=== PATIENT | male | born 1980 | race Hispanic/Latino ===

== ENCOUNTER 2018-12-21 07:43 | Inpatient (IN) | payer OTHER ==
[~2018-12-21] VITALS: Ht 182.9 cm; Wt 201.1 kg
[2018-12-21] MEDS ORDERED: PANTOPRAZOLE 40 MG 10ML VIAL IV STA (07:57)
[2018-12-21] MEDS ORDERED: ONDANSETRON HCL INJ 2MG/ML 2ML 2 MG/ML VIAL IV STA (07:57)
[2018-12-21] MEDS ORDERED: SODIUM CHLORIDE 0.9% 1000ML 1,000 ML IV STA (07:57)
[2018-12-21] MEDS ORDERED: MORPHINE SULFATE 5 MG/ML VIAL IV ONE (08:00)
[2018-12-21] MEDS ORDERED: MORPHINE SULFATE INJ 4 MG/ML INJ 1ML IV NR (08:15)
[2018-12-21] MEDS ORDERED: NIFEDIAC CC60 MG PO (08:36)
[2018-12-21] MEDS ORDERED: DICYCLOMINE HCL20 MG PO (08:36)
[2018-12-21] MEDS ORDERED: FLUTICASONE PRO16 GM INH (08:36)
[2018-12-21 08:49] LABS: BASOPHILS % 0.1 % (0.0-1.0); HEMATOCRIT 35.7 % (38.2-49.6); HEMOGLOBIN 11.9 g/dL (14.0-18.0); LYMPHOCYTES # (AUTO) 0.7 (1.0-3.2); LYMPHOCYTES % 4.9 % (18.0-39.1); MEAN CORPUSCULAR HEMOGLOBIN 25.9 pg (28-32); MEAN CORPUSCULAR HGB CONC 33.3 g/dL (31-35); MEAN CORPUSCULAR VOLUME 77.6 fL (81-99); MONOCYTES # (AUTO) 0.6 (0.2-0.8); MONOCYTES % 3.8 % (4.4-11.3); NEUTROPHILS # (AUTO) 13.5 (2.1-6.9); NEUTROPHILS % 90.7 % (38.7-80.0); PLATELET COUNT 343 x10e3/uL (140-360); RED CELL DISTRIBUTION WIDTH 15.9 % (11.7-14.4)
[2018-12-21 08:58] LABS: INR 1.17; PROTHROMBIN TIME 15.9 seconds (11.9-14.5)
[2018-12-21 08:59] LABS: PARTIAL THROMBOPLASTIN TIME 41.9 seconds (23.8-35.5)
[2018-12-21 09:02] LABS: BILIRUBIN,URINE 2+ (NEGATIVE); CLARITY,URINE SL CLOUDY (CLEAR); COLOR,URINE AMBER (YELLOW); KETONES,URINE TRACE (NEGATIVE); LEUKOCYTE ESTERASE ,URINE NEGATIVE (NEGATIVE); NITRITE,URINE NEGATIVE (NEGATIVE); PROTEIN,URINE DIPSTICK 2+ (NEGATIVE); URINE UROBILINOGEN 0.2 mg/dL (0.2 - 1)
[2018-12-21 09:07] LABS: ALANINE AMINOTRANSFERASE 17 IU/L (0-55); ALBUMIN/GLOBULIN RATIO 0.7 (0.8-2.0); ALKALINE PHOSPHATASE 127 IU/L (40-150); AMYLASE 25 U/L (25-125); ANION GAP 14.1 mmol/L (8-16); BLOOD UREA NITROGEN 13 mg/dL (7-26); BUN/CREATININE RATIO 15 (6-25); CALCIUM 9.1 mg/dL (8.4-10.2); CARBON DIOXIDE 22 mmol/L (22-29); CHLORIDE 102 mmol/L (98-107); CREATINE KINASE 33 IU/L (30-200); CREATININE, SERUM 0.87 mg/dL (0.72-1.25); EST GLOMERULAR FILTRATION RATE > 60 ML/MIN (60-); GLUCOSE 147 mg/dL (74-118); MAGNESIUM 2.3 MG/DL (1.3-2.1); POTASSIUM 3.1 mmol/L (3.5-5.1); SODIUM 135 mmol/L (136-145)
[2018-12-21 09:09] LABS: AMORPHOUS SEDIMENT,URINE FEW (FEW); BACTERIA,URINE RARE /HPF; EPITHELIAL CELLS,URINE RARE /LPF; MUCUS,URINE RARE (RARE); RBC,URINE 0-5 /HPF (0-5)
[2018-12-21 09:19] LABS: B-TYPE NATRIURETIC PEPTIDE2 15.1 pg/mL (0-100); LIPASE < 4 U/L (8-78)
--- NOTE | 2018-12-21 10:04 | Diagnostic Imaging Report ---
EXAMINATION: CHEST SINGLE (PORTABLE) INDICATION: Abdominal pain, nausea, vomiting. COMPARISON: None FINDINGS: Limited study secondary to portable technique and soft tissue attenuation. TUBES and LINES: None. LUNGS: Lungs are well inflated. There is central vascular congestion. Mild prominence of bilateral bill, right greater than left. No evidence of pneumonia. Mild patchy right basilar opacity, likely atelectasis. PLEURA: No pleural effusion or pneumothorax. HEART AND MEDIASTINUM: The cardiomediastinal silhouette is unremarkable. BONES AND SOFT TISSUES: No acute osseous lesion. Soft tissues are unremarkable. UPPER ABDOMEN: No free air under the diaphragm. IMPRESSION: Limited study secondary to portable technique and soft tissue attenuation. No acute radiographic abnormality. Prominence of the bilateral bill, right greater than left, likely reflecting pulmonary vascular congestion, however lymphadenopathy can have a similar appearance. Follow-up chest radiograph is suggested in 6-8 weeks. Signed by: Dr. Lee Toussaint MD on 12/21/2018 10:00 AM
--- NOTE | 2018-12-21 10:48 | Diagnostic Imaging Report ---
EXAMINATION: CT of the abdomen and pelvis with contrast. TECHNIQUE: Helical CT images of the abdomen and pelvis were performed from the lung bases to the lesser trochanters after the intravenous administration of 150 cc of Isovue 300 and the oral administration of none. Coronal and sagittal reformatted images were obtained.Dose modulation, iterative reconstruction, and/or weight based adjustment of the mA/kV was utilized to reduce the radiation dose to as low as reasonably achievable. COMPARISON: None. CLINICAL HISTORY:Right upper quadrant pain, fever DISCUSSION: ABDOMEN/PELVIS: LOWER THORAX:Unremarkable. HEPATOBILIARY: No focal hepatic lesions. No intra-or extrahepatic biliary ductal dilation. The gallbladder contains air with adjacent inflammatory change . No visualized intraluminal air or perforation SPLEEN: No splenomegaly. PANCREAS: No focal masses or ductal dilatation. ADRENALS: No adrenal nodules. KIDNEYS/URETERS: No hydronephrosis, stones, or solid mass lesions. PELVIC ORGANS/BLADDER: The bladder is normal. PERITONEUM/RETROPERITONEUM: No free air or fluid. LYMPH NODES: No intra-abdominal, retroperitoneal, pelvic or inguinal lymphadenopathy. VESSELS: The celiac trunk,superior and inferior mesenteric and bilateral renal arteries are patent The portal, superior mesenteric and splenic veins are patent. GI TRACT: No distention or wall thickening. Colonic diverticulosis without inflammatory change. Reactive wall thickening of the hepatic flexure. The appendix is normal. Prior gastric bypass. BONES AND SOFT TISSUE: No bony destructive lesions. No soft tissue abnormalities. IMPRESSION: Right upper quadrant inflammatory change related to cholecystitis with air in the gallbladder lumen (emphysematous cholecystitis). No perforation. Signed by: Dr. Henrique Perez M.D. on 12/21/2018 10:45 AM
[2018-12-21] MEDS ORDERED: KCL 20MEQ/.9 SOD CHL 1,000 ML IV ONE (11:15)
[2018-12-21] MEDS ORDERED: METRONIDAZOLE 500MG/NS 100ML 100 ML IV SCH (11:15)
[2018-12-21] MEDS ORDERED: PIPER-TAZ 3.375 GM 50 ML IV SCH (11:15)
--- NOTE | 2018-12-21 11:23 | NUR ---
I spoke with Dr Barbosa and Dr Montgomery
[2018-12-21] MEDS: PIPER-TAZ 3.375 GM 50 ML IV SCH ×2 (11:33→17:50)
[2018-12-21] MEDS ORDERED: ONDANSETRON HCL INJ 2MG/ML 2ML 2 MG/ML VIAL IV PRN (11:45)
[2018-12-21] MEDS ORDERED: MORPHINE SULFATE 2 MG/ML SYR 1ML IV PRN (11:45)
[2018-12-21] MEDS: METRONIDAZOLE 500MG/NS 100ML 100 ML IV SCH ×3 (12:04→22:53)
--- OUTSIDE RECORDS SUMMARY | 2018-12-21 13:03 | XMS REPORT ---
Author Author [facility] Address Unknown Phone Unavailable Care Team Providers Care County Attorney Name Role Phone Renee BOUCHER Unavailable Unavailable Problems This patient has no known problems. Allergies, Adverse Reactions, Alerts This patient has no known allergies or adverse reactions. Medications This patient has no known medications. Results Test Description Test Time Test Comments Text Results Atomic Results Result Comments CT ABDOMEN/PELVIS W 2018-12-21 10:37:00 [place] [address] Patient Name: NHUNG PEÑA MR #: [id number] : 1980 Age/Sex: 38/M Req #: [id number] Adm Physician: Ordered by: NAGI BOUCHER MD Report #: [id number] Location: ER Room/Bed: Procedure: [id number] CT/CT ABDOMEN/PELVIS W Exam Date: 12/21/18 Exam Time: 0935 REPORT STATUS: Signed EXAMINATION: CT of the abdomen and pelvis with contra st. TECHNIQUE: Helical CT images of the abdomen and pelvis were performed from the lung bases to the lesser trochanters after the intravenous administration of 150 cc of Isovue 300 and the oral administration of none. Coronal and sagittal reformatted images were obtained.Dose modulation, iterative reconstruction, and/or weight based adjustment of the mA/kV was utilized to reduce the radiation dose to as low as reasonably achievable. COMPARISON: None. CLINICAL HISTORY:Right upper quadrant pain, fever DISCUSSION: ABDOMEN/PELVIS: LOWER THORAX:Unremarkable. HEPATOBILIARY: No focal hepatic lesions. No intra-or extrahepatic biliary ductal dilation. The gallbladder contains air with adjacent inflammatory change . No visualized intraluminal air or perforation SPLEEN: No splenomegaly. PANCREAS: No focal masses or ductal dilatation. ADRENALS: No adrenal nodules. KIDNEYS/URETERS: No hydronephrosis, stones, or solid mass lesions. PELVIC ORGANS/BLADDER: The bladder is normal. PERITONEUM/RETROPERITONEUM: No free air or fluid. LYMPH NODES: No intra- abdominal, retroperitoneal, pelvic or inguinal lymphadenopathy. VESSELS: The celiac trunk,superior and inferior mesenteric and bilateral renal arteries are patent The portal, superior mesenteric and splenic veins are patent. GI TRACT: No distention or wall thickening. Colonic diverticulosis without inflammatory change. Reactive wall thickening of the hepatic flexure. The appendix is normal. Prior gastric bypass. BONES AND SOFT TISSUE: No bony destructive lesions. No soft tissue abnormalities. IMPRESSION: Right upper quadrant inflammatory change related to cholecystitis with air in the gallbladder lumen (emphysematous cholecystitis). No perforation. Signed by: Dr. Pete Simmons M.D. on 12/21/2018 10:45 AM Dictated By: PETE SIMMONS MD 1045 Transcribed By: LONNIE on 12/21/18 1045 COPY TO: NAGI BOUCHER MD CHEST SINGLE (PORTABLE) 2018-12-21 09:55:00 [place] [address] Patient Name: NHUNG PEÑA MR #: [id number] : 1980 Age/Sex: 38/M Req #: [id number] Adm Physician: Ordered by: NAGI BOUCHER MD Report #: [id number] Location: ER Room/Bed: Procedure: [id number] DX/CHEST SINGLE (PORTABLE) Exam Date: 12/21/18 Exam Time: 0900 REPORT STATUS: Signed EXAMINATION: CHEST SINGLE (PORTABLE) IN DICATION: Abdominal pain, nausea, vomiting. COMPARISON: None FINDINGS: Limited study secondary to portable technique and soft tissue attenuation. TUBES and LINES: None. LUNGS: Lungs are well inflated. There is central vascular congestion. Mild prominence of bilateral bill, right greater than left. No evidence of pneumonia. Mild patchy right basilar opacity, likely atelectasis. PLEURA: No pleural effusion or pneumothorax. HEART AND MEDIASTINUM: The cardiomediastinal silhouette is unremarkable. BONES AND SOFT TISSUES: No acute osseous lesion. Soft tissues are unremarkable. UPPER ABDOMEN: No free air under the diaphragm. IMPRESSION: Limited study secondary to portable technique and soft tissue attenuation. No acute radiographic abnormality. Prominence of the bilateral bill, right greater than left, likely reflecting pulmonary vascular congestion, however lymphadenopathy can have a similar appearance. Follow-up chest radiograph is suggested in 6-8 weeks. Signed by: Dr. Rafael Florez MD on 12/21/2018 10:00 AM Dictated By: RAFAEL FLOREZ MD 1000 Transcribed By: LONNIE on 12/21/18 1000 COPY TO: NAGI BOUCHER MD
[2018-12-21] MEDS ORDERED: MIDAZOLAM HCL 2 MG/2 ML VIAL ONE (13:40)
[2018-12-21] MEDS ORDERED: FENTANYL CITRATE/PF 100MCG/2 ML INJ ONE (13:40)
[2018-12-21 13:46] LABS: CREATINE KINASE 27 IU/L (30-200)
[2018-12-21] MEDS ORDERED: ONDANSETRON HCL INJ 2MG/ML 2ML 2 MG/ML VIAL ONE (14:24)
[2018-12-21] MEDS ORDERED: KETOROLAC TROMETHAMINE 30 MG/ML VIAL ONE (14:24)
[2018-12-21] MEDS ORDERED: ROCURONIUM BROMIDE 10 MG/ML 5ML VIAL ONE (14:24)
[2018-12-21] MEDS ORDERED: DEXAMETHASONE SOD PHOS INJ 4 MG/ML VIAL ONE (14:24)
[2018-12-21] MEDS ORDERED: PROPOFOL IV EMULSION 10 MG/ML 20 ML VIAL ONE (14:24)
[2018-12-21] MEDS ORDERED: SEVOFLURANE INHAL SOLN 250 ML PEN BTL ONE (14:24)
[2018-12-21] MEDS ORDERED: LIDOCAINE HCL 2% LOCAL INJ 5 ML SDV VIAL INJ ONE (14:24)
[2018-12-21] MEDS ORDERED: SUCCINYLCHOLINE 200 MG/10 ML SYR ONE (14:24)
[2018-12-21] MEDS ORDERED: SODIUM CHLORIDE 0.9% 50ML 50 ML ONE (16:14)
[2018-12-21] MEDS ORDERED: IOPAMIDOL 370 MG/ML 200 ML INFUS..BTL INJ ONE (16:14)
[2018-12-21 16:20] VITALS: BP 162/89
--- NOTE | 2018-12-21 16:20 | NUR ---
PATIENT RECEIVED FROM ER PER STRETCHER. ALERT AND VERBALLY RESPONSIVE, ABLE TO TRANSFER SELF FROM STRETCHER TO BED. SKIN WARM AND DRY TO TOUCH. RESPIRATION EVEN AND UNLABORED. ABDOMEN SOFT AND NON DISTENDED. REMAINS NPO, IV FLUID INFUSING ORDERED. ORIENTED TO SURROUNDINGS. BED IN LOWER POSITION, CALL LIGHT AT REACH. INSTRUCTED TO CALL FOR ASSISTANCE NEEDED. FAMILY AT BED SIDE.
[2018-12-21 16:21] VITALS: BP 162/89
--- NOTE | 2018-12-21 17:30 | NUR ---
SPOKE WITH MD REGARDING ABNORMAL VITAL SIGNS, NEW ORDERS RECEIVED.
[2018-12-21] MEDS: D5.45%NS/KCL 20MEQ 1,000 ML IV SCH ×2 (17:33→22:53)
[2018-12-21] MEDS ORDERED: METOPROLOL TARTRATE INJ 1 MG/ML VIAL IV PRN (17:45)
[2018-12-21] MEDS ORDERED: ACETAMINOPHEN 1000 MG/100 ML IV PRN (17:45)
--- NOTE | 2018-12-21 19:00 | NUR ---
OR TECH HERE TO TAKE PATIENT FOR LAP JAIME. INFORMED CONSENT OBTAINED. AAOX3, NO RESP DISTRESS. DENIES PAIN AT THIS TIME.
--- NOTE | 2018-12-21 19:08 | NUR ---
PATIENT OFF THE UNIT
[2018-12-21] MEDS ORDERED: BUPIVACAINE 0.5%/EPI 30 ML SDV INJ ONE (19:25)
[2018-12-21] MEDS ORDERED: HYDROCODONE/APAP 7.5MG-325MG 1 EA TAB PO PRN (21:45)
--- NOTE | 2018-12-21 21:58 | Consultation ---
DATE OF CONSULTATION: December 21, 2018 CHIEF COMPLAINT: Abdominal pain. HISTORY OF PRESENT ILLNESS: The patient is a 38-year-old male with a 4-day history of epigastric pain, bloating with decreased oral intake, nausea, but no vomiting. He admits to fever and chills. No diarrhea. PAST MEDICAL HISTORY: Significant for hypertension. SURGICAL HISTORY: Positive for gastric bypass surgery 4 years ago. ALLERGIES: THE PATIENT HAS NO KNOWN DRUG ALLERGIES. SOCIAL HABITS: He does not smoke or drink alcohol. REVIEW OF SYSTEMS: No chest pain or shortness of breath. PHYSICAL EXAMINATION VITAL SIGNS: Blood pressure 160/89, pulse 112, temperature 100.6. GENERAL: He is awake and alert, in moderate discomfort. HEENT: Sclerae are anicteric. NECK: Supple. LUNGS: Clear. HEART: Regular rate and rhythm. ABDOMEN: Soft with guarding, tenderness, and rebound in the right upper quadrant. EXTREMITIES: Without cyanosis or edema. LABS: The patient's creatinine is 0.8, potassium 3.1. Liver function tests within normal limits. Lipase is normal. CBC; white cell count 15,000, hemoglobin of 11.9. Abdominal CT showed gallbladder inflammation with air inside the lumen. ASSESSMENT: Emphysematous cholecystitis. PLAN: IV antibiotic has been initiated. We will proceed with cholecystectomy on an urgent basis. Job#: [id number] ASHLEY
[2018-12-21 22:30] VITALS: BP 123/79
--- NOTE | 2018-12-21 22:30 | NUR ---
RECEIVED PATIENT FROM OR. PATIENT IS AWAKE AND ALERT. NO RESP DISTRESS. HAS N/C 02 RUNNING 3L. C/O PAIN TO ABD RATING 7. HAS 2 BAND AIDS AND 1 COVERLET WITH ZAYRA DRAIN WITH SEROSANGUINEOUS FLUID. TOLERATED WITH SMALL SIPS OF WATER. SPOUSE AT BEDSIDE. CALL LIGHT WITHIN REACH AND INSTRUCTED TO CALL FOR ASSISTANCE.
[2018-12-21] MEDS: MORPHINE SULFATE INJ 4 MG/ML INJ 1ML IV PRN (22:54)
[2018-12-22] VITALS (9 sets, daily range): BP systolic 120–140; BP diastolic 77–87
--- NOTE | 2018-12-22 01:12 | Operative Report ---
DATE OF PROCEDURE: December 21, 2018 PREOPERATIVE DIAGNOSIS: Emphysematous cholecystitis. POSTOPERATIVE DIAGNOSIS: Emphysematous cholecystitis. OPERATIVE PROCEDURE: Open cholecystectomy. ANESTHESIA: General, Dr. Prado. INDICATIONS: The patient is a 38-year-old male with a 4-day history of abdominal pain with CT scan showing emphysematous cholecystitis with air in the gallbladder. Patient consented for possible open cholecystectomy with attendant risks of bleeding, infection, and organ injury discussed. PROCEDURE FINDINGS: Gangrenous gallbladder with air in the gallbladder. DESCRIPTION OF PROCEDURE: The patient was brought to the OR and intubated. Abdomen was prepped with alcohol and draped in a sterile fashion. Patient had a palpable phlegmon in the right upper quadrant; therefore, right upper quadrant subcostal incision was performed extending through the anterior and posterior fascia entering the peritoneal cavity. A large phlegmon was noted and the omental adhesions in the surrounding bowels were dissected off the gallbladder, which was noted to be significantly enlarged and distended and gangrenous wall as noted. Decompression was carried out with a needle, immediately collapsed the gallbladder. We then proceeded to separate the gallbladder from the liver in an antegrade fashion, starting at the fundus working towards the neck of the gallbladder. In the process, cystic artery was isolated, clipped, and divided. The neck of the gallbladder and cystic duct were then controlled with an Endoloop ties of 0 PDS. The gallbladder was then amputated above the tie and removed off tissues and irrigated with copious saline solution. Hemostasis was achieved. A 15-Setswana Andres drain was placed in the Morison pouch and taken out through the right upper quadrant stab wound. We then proceeded to close the abdomen by approximating the posterior fascia with running 0 Vicryl, anterior fascia with a running 0 PDS. Skin was closed with nahomi. The patient was then extubated and transported in a guarded condition to recovery room. ESTIMATED BLOOD LOSS: 20 mL. Job#: [id number] ASHLEY
[2018-12-22] MEDS: METRONIDAZOLE 500MG/NS 100ML 100 ML IV SCH ×4 (05:25→23:26)
[2018-12-22] MEDS: PIPER-TAZ 3.375 GM 50 ML IV SCH ×4 (06:16→18:06)
[2018-12-22 06:19] LABS: BASOPHILS % 0.1 % (0.0-1.0); HEMATOCRIT 31.7 % (38.2-49.6); HEMOGLOBIN 10.2 g/dL (14.0-18.0); LYMPHOCYTES # (AUTO) 0.5 (1.0-3.2); LYMPHOCYTES % 3.8 % (18.0-39.1); MEAN CORPUSCULAR HEMOGLOBIN 26.1 pg (28-32); MEAN CORPUSCULAR HGB CONC 32.2 g/dL (31-35); MEAN CORPUSCULAR VOLUME 81.1 fL (81-99); MONOCYTES # (AUTO) 0.5 (0.2-0.8); MONOCYTES % 4.1 % (4.4-11.3); NEUTROPHILS # (AUTO) 10.7 (2.1-6.9); NEUTROPHILS % 91.5 % (38.7-80.0); PLATELET COUNT 300 x10e3/uL (140-360); RED BLOOD COUNT 3.91 x10e6/uL (4.3-5.7); RED CELL DISTRIBUTION WIDTH 16.1 % (11.7-14.4)
[2018-12-22 06:29] LABS: CREATINE KINASE 91 IU/L (30-200)
[2018-12-22 06:53] LABS: ALANINE AMINOTRANSFERASE 32 IU/L (0-55); ALBUMIN 2.4 g/dL (3.5-5.0); ALBUMIN/GLOBULIN RATIO 0.6 (0.8-2.0); ALKALINE PHOSPHATASE 111 IU/L (40-150); AMYLASE 19 U/L (25-125); ANION GAP 11.8 mmol/L (8-16); CALCIUM 8.5 mg/dL (8.4-10.2); CARBON DIOXIDE 22 mmol/L (22-29); CHLORIDE 110 mmol/L (98-107); CREATININE, SERUM 0.77 mg/dL (0.72-1.25); EST GLOMERULAR FILTRATION RATE > 60 ML/MIN (60-); GLUCOSE 174 mg/dL (74-118); POTASSIUM 3.8 mmol/L (3.5-5.1); SODIUM 140 mmol/L (136-145)
[2018-12-22 07:05] LABS: BLOOD UREA NITROGEN 10 mg/dL (7-26)
[2018-12-22 07:08] LABS: BUN/CREATININE RATIO 13 (6-25); LIPASE < 4 U/L (8-78)
--- NOTE | 2018-12-22 07:13 | NUR ---
PATIENT IN BED RESTING WITH NO RESPIRATORY DISTRESS. WRAY IN PLACE DRAINING CLEAR YELLOW URINE. 2 TROCAR SITES DRY AND INTACT TO ABDOMEN, RIGHT ABDOMEN WOUND AND ZAYRA DRAIN, SCD IN PLACE. BED IN LOWER POSITION, CALL LIGHT AT REACH. FAMILY AT BED SIDE, INSTRUCTED TO CALL FOR ASSISTANCE NEEDED.
[2018-12-22 07:28] LABS: ANISOCYTOSIS SLIGHT; BAND NEUTROPHILS % (MANUAL) 3 %; LYMPHOCYTES % (MANUAL) 4 % (19-48); MONOCYTES % (MANUAL) 5 % (3.4-9.0); NEUTROPHILS % (MANUAL) 88 % (40-74); PLATELET ESTIMATE ADEQUATE; PLATELET MORPHOLOGY COMMENT NORMAL; RBC MORPHOLOGY COMMENT ABNORMAL
--- NOTE | 2018-12-22 09:14 | NUR ---
WRAY CATHETER DISCONTINUE ORDERED. PATIENT IS DUE TO VOID. URINAL PROVIDED. BED IN LOWER POSITION, CALL LIGHT AT REACH.
[2018-12-22] MEDS: D5.45%NS/KCL 20MEQ 1,000 ML IV SCH ×2 (10:30→23:26)
--- NOTE | 2018-12-22 11:10 | NUR ---
PATIENT VOIDED LARGE AMOUNT OF CLEAR YELLOW URINE TO TOILET. 50 CC OF SEROSANGUINEOUS FLUID REMOVED FROM ZAYRA DRAIN. PATIENT IN BED TALKING TO FAMILY VISITING. CALL LIGHT AT REACH.
[2018-12-22] MEDS: MORPHINE SULFATE INJ 4 MG/ML INJ 1ML IV PRN (13:50)
--- NOTE | 2018-12-22 16:02 | NUR ---
PATIENT AMBULATING IN HALLWAY, NO COMPLAIN VOICED. WILL CONTINUE TO MONITOR.
[2018-12-22] MEDS: ENOXAPARIN SOD INJ 40 MG/0.4 ML SYR SC SCH (17:20)
[2018-12-22] MEDS: FAMOTIDINE 20 MG/2 ML VIAL IV SCH (17:20)
--- NOTE | 2018-12-22 19:05 | NUR ---
RECEIVED PATIENT IN BED WITH SPOUSE AT BEDSIDE. DENIES PAIN AT THIS TIME. NO RESP DISTRESS. ZAYRA DRAIN IN PLACE WITH DRESSING TO RUQ ABD C,D,I. CALL LIGHT WITHIN REACH AND INSTRUCTED TO CALL FOR ASSISTANCE.
--- NOTE | 2018-12-22 21:20 | NUR ---
NOTED BM WITH SOFT BROWN STOOLS. NO BLOOD. DENIES PAIN AT THIS TIME.
--- NOTE | 2018-12-22 23:37 | NUR ---
History and Physical PCP cc: N/Diarrhea. HPI: 38yoM, with hx HTn, developed nausea and diarrhea; Found to have Emphysematous cholecystitis, underwent surgical mgmt. Now resting comfortably in bed. Pain controlled 04/22. PMH: HTN, Obesity PSHx: gastric bypass tonsillectomy, adenoidectomy Allergies: see emr Fh/SH; ; no cigs/etoh/illicits Meds; see MAR ROS: no f/c/s/WHIPPLE/dizziness/cp/sob/skin rash v/s: rev'd PE: nad anicteric ns1s2 mod bs soft ND; right abdominal dressing with drain with serosanguinous material no e/t skin dry n. affect a&ox3; page labs/meds; rev'd A/P: 38yoM Emphysematous cholecystitis HTN Microcytic anemia Hypokalemia PLAN s/p lap william Pain control f/u blood counts replace and recheck K scd; pepcid zosyn/flagyl pepcid/scd Dario Barbosa MD, PhD.
[2018-12-23] VITALS (8 sets, daily range): BP systolic 115–140; BP diastolic 74–85
[2018-12-23] MEDS: PIPER-TAZ 3.375 GM 50 ML IV SCH ×5 (00:26→23:22)
[2018-12-23] MEDS: METRONIDAZOLE 500MG/NS 100ML 100 ML IV SCH ×3 (05:24→17:35)
--- NOTE | 2018-12-23 07:08 | NUR ---
PATIENT IN BED RESTING WITH EYES CLOSED, NO RESPIRATORY DISTRESS OBSERVED. DRESSING DRY AND INTACT TO ABDOMEN, TROCAR SITES AND ZAYRA DRAIN SITES DRY AND INTACT. BED IN LOWER POSITION, CALL LIGHT AT REACH.
[2018-12-23] MEDS: FAMOTIDINE 20 MG/2 ML VIAL IV SCH ×2 (09:10→17:23)
--- NOTE | 2018-12-23 11:59 | NUR ---
PATIENT AMBULATING IN HALLWAY. MD IN TO SEE PATIENT, NEW ORDER RECEIVED.
--- NOTE | 2018-12-23 15:45 | NUR ---
Visit made by the Spiritual Care Department Pastoral Visitor, Aidan Oates. PV provided pastoral presence, hospitality, and supportive listening. Pastoral Visitor informed pt/family of the scope of [employer] Services and availability. HOWARD FREY Head Refrigerating Engineer Spiritual Care Department O: [phone] Pager: [phone] ([phone] number calling from)
--- NOTE | 2018-12-23 16:07 | NUR ---
PATIENT OUT OF BED TO CHAIR WATCHING TV, NO COMPLAIN VOICED. CALL LIGHT AT REACH.
--- NOTE | 2018-12-23 16:28 | NUR ---
IM- Progress note O/N; no events ROS: no f/c/s/WHIPPLE/dizziness/cp/sob/skin rash v/s: rev'd PE: nad anicteric ns1s2 mod bs soft ND; right abdominal dressing with drain with serosanguinous material no e/t skin dry n. affect a&ox3; page labs/meds; rev'd A/P: 38yoM Emphysematous cholecystitis HTN Microcytic anemia Hypokalemia PLAN s/p lap william Pain control f/u blood counts replace and recheck K scd; pepcid zosyn/flagyl pepcid/scd 12/23/18 f/u labs; Dario Barbosa MD, PhD.
[2018-12-23] MEDS: ENOXAPARIN SOD INJ 40 MG/0.4 ML SYR SC SCH (17:23)
[2018-12-23] MEDS: D5.45%NS/KCL 20MEQ 1,000 ML IV SCH (18:00)
[2018-12-23 18:05] LABS: BASOPHILS % 0.2 % (0.0-1.0); EOSINOPHILS % 0.1 % (0.0-6.0); HEMATOCRIT 30.1 % (38.2-49.6); HEMOGLOBIN 9.8 g/dL (14.0-18.0); LYMPHOCYTES # (AUTO) 2.2 (1.0-3.2); LYMPHOCYTES % 24.8 % (18.0-39.1); MEAN CORPUSCULAR HEMOGLOBIN 25.9 pg (28-32); MEAN CORPUSCULAR HGB CONC 32.6 g/dL (31-35); MEAN CORPUSCULAR VOLUME 79.6 fL (81-99); MONOCYTES # (AUTO) 0.5 (0.2-0.8); NEUTROPHILS # (AUTO) 6.1 (2.1-6.9); NEUTROPHILS % 68.6 % (38.7-80.0); PLATELET COUNT 362 x10e3/uL (140-360); RED BLOOD COUNT 3.78 x10e6/uL (4.3-5.7); RED CELL DISTRIBUTION WIDTH 16.2 % (11.7-14.4)
[2018-12-23 18:21] LABS: ANION GAP 13.3 mmol/L (8-16); BLOOD UREA NITROGEN 13 mg/dL (7-26); BUN/CREATININE RATIO 16 (6-25); CALCIUM 8.5 mg/dL (8.4-10.2); CARBON DIOXIDE 20 mmol/L (22-29); CHLORIDE 108 mmol/L (98-107); EST GLOMERULAR FILTRATION RATE > 60 ML/MIN (60-); GLUCOSE 168 mg/dL (74-118); POTASSIUM 3.3 mmol/L (3.5-5.1); SODIUM 138 mmol/L (136-145)
[2018-12-24] VITALS: BP 122/78
[2018-12-24] MEDS: METRONIDAZOLE 500MG/NS 100ML 100 ML IV SCH ×4 (00:10→12:00)
[2018-12-24 04:35] VITALS: BP 121/82
[2018-12-24] MEDS: PIPER-TAZ 3.375 GM 50 ML IV SCH ×2 (05:28→12:45)
[2018-12-24] MEDS: D5.45%NS/KCL 20MEQ 1,000 ML IV SCH (07:19)
[2018-12-24 07:20] VITALS: BP 121/82
--- NOTE | 2018-12-24 07:30 | NUR ---
pt up in bed denies pain,no distress noted.
[2018-12-24 07:52] VITALS: BP 113/72
[2018-12-24] MEDS: FAMOTIDINE 20 MG/2 ML VIAL IV SCH ×2 (08:30→17:00)
[2018-12-24] MEDS ORDERED: PEPCID20 MG PO (09:07)
[2018-12-24] MEDS ORDERED: SENNOSIDES8.6 MG PO (09:07)
[2018-12-24] MEDS ORDERED: CIPRO500 MG PO (09:07)
[2018-12-24] MEDS ORDERED: FLAGYL500 MG PO (09:07)
[2018-12-24] MEDS ORDERED: ZOFRAN4 MG PO (09:07)
--- NOTE | 2018-12-24 09:53 | NUR ---
PT UP AMBULATING IN [place] DOING WELL
[2018-12-24 12:02] VITALS: BP 124/79
--- NOTE | 2018-12-24 13:00 | NUR ---
TOLERATING DIET WELL,DENIES PAIN,AMBULATING IN [place]
[2018-12-24 16:12] VITALS: BP 127/72
[2018-12-24] MEDS: ENOXAPARIN SOD INJ 40 MG/0.4 ML SYR SC SCH (17:00)
--- NOTE | 2018-12-24 17:25 | NUR ---
DR WILKINS HERE OK TO DC PT,ZAYRA DRAIN REMOVED ODRERED,TIP INTACT 4X4 DRSG APPLIED,MINIMAL AMT DRAINAGED SEROUS
[2018-12-24] MEDS: MORPHINE SULFATE INJ 4 MG/ML INJ 1ML IV PRN (17:45)
--- NOTE | 2018-12-24 19:25 | NUR ---
PT DISCHARGED HOME IV DCD WITHOUT RENESS OR SWELLING ,PRESCRIPTIONS AND INSTRUCTIONS GIVEN COPY ON CHART ,TRANSPORTED TO [facility] VIA W/C
--- NOTE | 2019-01-11 06:16 | NUR ---
DISCHARGE SUMMARY A/P: 38yoM Emphysematous cholecystitis HTN Microcytic anemia Hypokalemia PLAN s/p lap william Pain control f/u blood counts replace and recheck K scd; pepcid zosyn/flagyl pepcid/scd 12/23/18 f/u labs; D/C HOME F/U PCP 1 WEEK AND GI/SURGERY 1 WEEK STABLE D/C >35MINS SUKUMAR BOYLE MD, PHD.
== END 2018-12-24 19:07 | disposition home or self-care (01) | DRG 854 ==
LOC: ER 07:43 → ERHOLD 12:20 → MED/SURG3 16:11
PROVIDERS: ADMIT Internal Medicine; ATTEND Internal Medicine
PROC: 0FT40ZZ Resection of Gallbladder, Open Approach (ICD-10-PCS; principal; 2018-12-22)
DX: A41.9 Sepsis, unspecified organism (principal); K81.0 Acute cholecystitis; Z68.44 Body mass index [BMI] 60.0-69.9, adult; K82.A1 Gangrene of gallbladder in cholecystitis; I10 Essential (primary) hypertension; E87.6 Hypokalemia; D50.9 Iron deficiency anemia, unspecified; E66.01 Morbid (severe) obesity due to excess calories; Z98.84 Bariatric surgery status
CPT/HCPCS: 36415; 71045; 74177; 80048; 80053; 81001; 82150; 82550; 82553; 83605; 83690; 83735; 83880; 84484; 85025; 85610; 85730; 87040; 87086; 88304; 93005; 99284; J1100; J1650; J1885; J2001; J2250; J2270; J2405; J2543; J7030; Q9967